=== PATIENT | male | born 1985 | race Caucasian/White ===

== ENCOUNTER 2016-07-25 22:26 | Emergency (ER) | payer SELFPAY ==
[~2016-07-25] VITALS: Ht 172.7 cm; Wt 81.6 kg
[2016-07-25 22:32] VITALS: BP_SYST 134
[2016-07-25 23:08] VITALS: BP_SYST 134
== END 2016-07-25 22:39 ==
LOC: SED 22:26
DX: Z02.83 Encounter for blood-alcohol and blood-drug test (principal); V89.2XXA Person injured in unspecified motor-vehicle accident, traffic, initial encounter; Y93.89 Activity, other specified; Y99.8 Other external cause status; Y92.89 Other specified places as the place of occurrence of the external cause
CPT/HCPCS: 99283